=== PATIENT | male | born 1990 | race African-American/Black ===

== ENCOUNTER 2016-12-14 21:18 | Emergency (ER) | payer SELFPAY ==
[~2016-12-14] VITALS: Ht 165.1 cm; Wt 97.7 kg
[~2016-12-14 21:18] MED LIST: BACTRIM DS 8001 TAB PO; CEPHALEXIN500 M1 PO; LORTAB 5/500 501 TAB PO; NAPROXEN PO; NO HOME MEDICATIONS; PREDNISONE20 MG PO; SEPTRA DS 8001 TAB PO; ZOFRAN 4MG T4 MG/TAB PO
[2016-12-14 21:22] VITALS: BP 157/68; TEMP 98.7
[2016-12-14] MEDS ORDERED: ZOVIRAX400 MG PO (22:59)
[2016-12-14 23:12] VITALS: PULSE 90
[2016-12-15 00:54] LABS: CHLAMYDIA/TRACH by PCR Male DETECTED; Neisseria Gon by PCR Male NOT DETECTED
== END 2016-12-14 23:12 | disposition home or self-care (01) ==
LOC: COL.ER 21:18
PROVIDERS: Physician Assistant
DX: N48.5 Ulcer of penis (principal); F17.210 Nicotine dependence, cigarettes, uncomplicated
CPT/HCPCS: J0696

== ENCOUNTER 2017-03-08 15:28 | Emergency (ER) | payer SELFPAY ==
[~2017-03-08] VITALS: Ht 165.1 cm; Wt 97.7 kg
[~2017-03-08 15:28] MED LIST changes: +ZOVIRAX400 MG PO
[2017-03-08 15:32] VITALS: BP 156/76; TEMP 99.3
[2017-03-08] MEDS ORDERED: BACTRIM DS 8001 TAB PO (16:41)
[2017-03-08 17:13] VITALS: PULSE 90
== END 2017-03-08 17:16 | disposition home or self-care (01) ==
LOC: COL.ER 15:28
DX: L02.91 Cutaneous abscess, unspecified (principal); L03.115 Cellulitis of right lower limb; F17.210 Nicotine dependence, cigarettes, uncomplicated

== ENCOUNTER 2018-10-11 20:29 | Emergency (ER) | payer SELFPAY ==
[~2018-10-11] VITALS: Ht 165.1 cm; Wt 113.6 kg
[2018-10-11 20:32] VITALS: TEMP 97.1
[2018-10-11 20:58] VITALS: BP 135/76
[2018-10-11 21:31] LABS: BASO % 0.6 % (0.0-2.0); EOS # 0.2 (0.0-0.7); EOS % 2.1 % (0-4.0); GRAN # 3.2 (1.4-6.5); GRAN % 45.5 % (42.2-75.2); HEMATOCRIT 43.1 % (42.0-52.0); HEMOGLOBIN 14.1 g/dl (13.5-18.0); LYMPH # 2.9 (1.2-3.4); LYMPH % 42.1 % (20.0-51.0); MEAN CELL VOLUME 88 fl (80.0-100.0); MEAN CORPUSCULAR HEMOGLOBIN 29 pg (27.0-31.0); MEAN CORPUSCULAR HGB CONC 33 g/dl (33.0-37.0); MEAN PLATELET VOLUME 11.1 fl (7.4-10.4); MONO # 0.7 (0.1-0.6); MONO % 9.3 % (1.7-9.3); PLATELET COUNT 241 K/mm3 (130-400); RED BLOOD COUNT 4.91 M/mm3 (4.20-5.60); REDCELL DISTRIBUTION WIDTH-CV 13.3 % (11.5-14.5)
[2018-10-11 21:44] LABS: ALANINE AMINOTRANSFERASE 53 U/L (21-72); ALBUMIN 4.4 gm/dL (3.5-5.0); ALKALINE PHOSPHATASE 94 U/L (50-136); ANION GAP 9 mmol/L (7-16); AST,SGOT 42 U/L (15-37); BILIRUBIN,TOTAL 0.6 mg/dL (0.0-1.0); BLOOD UREA NITROGEN 17 mg/dL (9-20); CALCIUM 9.7 mg/dL (8.4-10.2); CARBON DIOXIDE 29 mmol/L (22-30); CHLORIDE 102 mmol/L (98-107); GLUCOSE 103 mg/dL (74-106); SODIUM 140 mmol/L (137-145); TOTAL PROTEIN 8.3 gm/dL (6.4-8.2)
[2018-10-11] MEDS ORDERED: ANTIVERT 25MG25 MG PO (21:57)
[2018-10-11 22:00] LABS: TROPONIN-I < 0.012 ng/mL (0.000-0.035)
[2018-10-11 22:18] VITALS: PULSE 76
== END 2018-10-11 22:20 | disposition home or self-care (01) ==
LOC: COL.ER 20:29
PROVIDERS: Emergency Medicine
DX: R42 Dizziness and giddiness (principal); R55 Syncope and collapse; F17.210 Nicotine dependence, cigarettes, uncomplicated; F12.90 Cannabis use, unspecified, uncomplicated
CPT/HCPCS: J2060; J2405; J7030

== ENCOUNTER 2019-08-05 23:53 | Emergency (ER) | payer SELFPAY ==
[~2019-08-05] VITALS: Ht 165.1 cm; Wt 122.7 kg
[~2019-08-05 23:53] MED LIST changes: +ANTIVERT 25MG25 MG PO
[2019-08-06 00:09] VITALS: TEMP 98.1
[2019-08-06 01:10] VITALS: BP 121/79; PULSE 90
== END 2019-08-06 01:10 | disposition home or self-care (01) ==
LOC: COL.ER 23:53
DX: S01.81XA Laceration without foreign body of other part of head, initial encounter (principal); W17.89XA Other fall from one level to another, initial encounter; Y92.009 Unspecified place in unspecified non-institutional (private) residence as the place of occurrence of the external cause

== ENCOUNTER 2020-04-22 09:55 | Emergency (ER) | payer SELFPAY ==
[~2020-04-22] VITALS: Ht 165.1 cm; Wt 113.6 kg
[2020-04-22 10:10] VITALS: TEMP 98.2
[2020-04-22 10:29] LABS: BASO % 0.5 % (0.0-2.0); EOS # 0.1 (0.0-0.7); EOS % 0.8 % (0-4.0); GRAN # 4.5 (1.4-6.5); GRAN % 60.5 % (42.2-75.2); HEMATOCRIT 46.9 % (42.0-52.0); HEMOGLOBIN 15.6 g/dl (13.5-18.0); LYMPH % 26.4 % (20.0-51.0); MEAN CELL VOLUME 86 fl (80.0-100.0); MEAN CORPUSCULAR HEMOGLOBIN 29 pg (27.0-31.0); MEAN CORPUSCULAR HGB CONC 33 g/dl (33.0-37.0); MEAN PLATELET VOLUME 10.5 fl (7.4-10.4); MONO # 0.9 (0.1-0.6); MONO % 11.7 % (1.7-9.3); PLATELET COUNT 280 K/mm3 (130-400); RED BLOOD COUNT 5.45 M/mm3 (4.20-5.60)
[2020-04-22 10:37] LABS: INR 1.1 (0.8-3.0); PROTHROMBIN TIME 11.9 SECONDS (9.7-12.8)
[2020-04-22 10:39] LABS: PARTIAL THROMBOPLASTIN TIME 38.3 SECONDS (26.0-37.0)
[2020-04-22 10:43] LABS: ALANINE AMINOTRANSFERASE 37 U/L (4-49); ALKALINE PHOSPHATASE 119 U/L (50-136); ANION GAP 12 mmol/L (7-16); AST,SGOT 36 U/L (15-37); BILIRUBIN,TOTAL 0.9 mg/dL (0.0-1.0); BLOOD UREA NITROGEN 14 mg/dL (9-20); C-REACTIVE PROTEIN 1.4 mg/dL (0.0-0.9); CALCIUM 9.8 mg/dL (8.4-10.2); CARBON DIOXIDE 27 mmol/L (22-30); CHLORIDE 101 mmol/L (98-107); CREATININE, serum 0.87 (0.66-1.25); GLUCOSE 115 mg/dL (74-106); POTASSIUM 3.5 mmol/L (3.4-5.0); SODIUM 140 mmol/L (137-145); TOTAL PROTEIN 9.4 gm/dL (6.4-8.2)
[2020-04-22 10:52] LABS: TROPONIN-I < 0.012 ng/mL (0.000-0.035)
[2020-04-22 12:06] VITALS: BP 136/101; PULSE 76
== END 2020-04-22 12:00 | disposition home or self-care (01) ==
LOC: COL.ER 09:55
PROVIDERS: Family Medicine
DX: R07.89 Other chest pain (principal); F17.210 Nicotine dependence, cigarettes, uncomplicated
CPT/HCPCS: J1885

== ENCOUNTER 2020-05-18 09:36 | Emergency (ER) | payer SELFPAY ==
[~2020-05-18] VITALS: Ht 165.1 cm; Wt 118.2 kg
[2020-05-18 09:49] VITALS: TEMP 96.1
[2020-05-18 10:24] LABS: BASO % 0.6 % (0.0-2.0); EOS % 0.6 % (0-4.0); GRAN # 3.8 (1.4-6.5); GRAN % 59.5 % (42.2-75.2); HEMATOCRIT 46.8 % (42.0-52.0); HEMOGLOBIN 15.5 g/dl (13.5-18.0); LYMPH # 1.8 (1.2-3.4); LYMPH % 28.5 % (20.0-51.0); MEAN CELL VOLUME 87 fl (80.0-100.0); MEAN CORPUSCULAR HEMOGLOBIN 29 pg (27.0-31.0); MEAN CORPUSCULAR HGB CONC 33 g/dl (33.0-37.0); MONO # 0.7 (0.1-0.6); MONO % 10.6 % (1.7-9.3); PLATELET COUNT 286 K/mm3 (130-400); RED BLOOD COUNT 5.41 M/mm3 (4.20-5.60); REDCELL DISTRIBUTION WIDTH-CV 13.4 % (11.5-14.5)
[2020-05-18 11:34] LABS: ALBUMIN 4.3 gm/dL (3.5-5.0); BILIRUBIN,TOTAL 0.7 mg/dL (0.0-1.0); CREATININE, serum 0.8 (0.66-1.25)
[2020-05-18] MEDS ORDERED: ZOFRAN ODT4 MG PO (13:26)
[2020-05-18 13:45] VITALS: BP 135/85; PULSE 70
== END 2020-05-18 13:45 | disposition home or self-care (01) ==
LOC: COL.ER 09:36
PROVIDERS: Emergency Medicine
DX: R11.10 Vomiting, unspecified (principal); R10.84 Generalized abdominal pain; F17.200 Nicotine dependence, unspecified, uncomplicated
CPT/HCPCS: J1885; J2405; J3010; J7030; J7120

== ENCOUNTER 2020-05-20 12:45 | Emergency (ER) | payer SELFPAY ==
[~2020-05-20] VITALS: Ht 165.1 cm; Wt 118.2 kg
[~2020-05-20 12:45] MED LIST changes: +ZOFRAN ODT4 MG PO
[2020-05-20 13:06] VITALS: TEMP 97
[2020-05-20 14:10] LABS: BASO % 0.5 % (0.0-2.0); EOS % 0.2 % (0-4.0); GRAN # 3.6 (1.4-6.5); GRAN % 56.4 % (42.2-75.2); HEMATOCRIT 43.5 % (42.0-52.0); HEMOGLOBIN 14.7 g/dl (13.5-18.0); LYMPH # 2.1 (1.2-3.4); LYMPH % 32.3 % (20.0-51.0); MEAN CELL VOLUME 85 fl (80.0-100.0); MEAN CORPUSCULAR HEMOGLOBIN 29 pg (27.0-31.0); MEAN CORPUSCULAR HGB CONC 34 g/dl (33.0-37.0); MEAN PLATELET VOLUME 10.4 fl (7.4-10.4); MONO # 0.7 (0.1-0.6); MONO % 10.4 % (1.7-9.3); PLATELET COUNT 265 K/mm3 (130-400); RED BLOOD COUNT 5.11 M/mm3 (4.20-5.60); REDCELL DISTRIBUTION WIDTH-CV 12.8 % (11.5-14.5)
[2020-05-20 14:24] LABS: ALANINE AMINOTRANSFERASE 28 U/L (4-49); ALBUMIN 4.6 gm/dL (3.5-5.0); ALKALINE PHOSPHATASE 94 U/L (50-136); ANION GAP 8 mmol/L (7-16); AST,SGOT 31 U/L (15-37); BILIRUBIN,TOTAL 0.7 mg/dL (0.0-1.0); BLOOD UREA NITROGEN 11 mg/dL (9-20); CALCIUM 9.4 mg/dL (8.4-10.2); CARBON DIOXIDE 29 mmol/L (22-30); CHLORIDE 103 mmol/L (98-107); CREATININE, serum 0.75 (0.66-1.25); GLUCOSE 105 mg/dL (74-106); POTASSIUM 3.6 mmol/L (3.4-5.0); SODIUM 139 mmol/L (137-145); TOTAL PROTEIN 8.5 gm/dL (6.4-8.2)
[2020-05-20 14:27] LABS: C-REACTIVE PROTEIN < 0.5 mg/dL (0.0-0.9)
[2020-05-20] MEDS ORDERED: NORCO 325 MG-51 TAB PO (15:33)
[2020-05-20 15:39] VITALS: BP 130/80; PULSE 77
== END 2020-05-20 15:39 | disposition home or self-care (01) ==
LOC: COL.ER 12:45
PROVIDERS: Family Medicine
DX: R09.1 Pleurisy (principal); F17.210 Nicotine dependence, cigarettes, uncomplicated
CPT/HCPCS: J0780; J1885; J7030

== ENCOUNTER 2020-08-27 00:27 | Emergency (ER) | payer SELFPAY ==
[~2020-08-27] VITALS: Ht 165.1 cm; Wt 109.1 kg
[~2020-08-27 00:27] MED LIST changes: +NORCO 325 MG-51 TAB PO
[2020-08-27 00:36] VITALS: TEMP 97.7
[2020-08-27 01:21] VITALS: BP 129/91; PULSE 92
== END 2020-08-27 01:21 | disposition home or self-care (01) ==
LOC: COL.ER 00:27
DX: S51.011A Laceration without foreign body of right elbow, initial encounter (principal); F17.210 Nicotine dependence, cigarettes, uncomplicated; W26.8XXA Contact with other sharp object(s), not elsewhere classified, initial encounter; Y93.69 Activity, other involving other sports and athletics played as a team or group